=== PATIENT | female | born 1980 | race Caucasian/White ===

== ENCOUNTER 2024-06-30 18:55 | Emergency (ER) | payer MEDICAID ==
[~2024-06-30] VITALS: Ht 165.1 cm; Wt 106.4 kg
[2024-06-30 20:27] LABS: STREP A SCREEN POSITIVE (Neg)
[2024-06-30] MEDS ORDERED: AMOX-101 PO (21:15)
[2024-06-30] MEDS: amoxicillin 250mg capsule PO ONE (21:24)
[2024-06-30 21:32] VITALS: BP 109/59; PULSE 77; RESP 16; TEMP 98.5; O2SAT 100
== END 2024-06-30 21:33 | disposition home or self-care (01) ==
LOC: ER 18:56
DX: J02.9 Acute pharyngitis, unspecified (principal); R50.9 Fever, unspecified; R05.9 Cough, unspecified; Z20.822 Contact with and (suspected) exposure to COVID-19; Z98.890 Other specified postprocedural states
CPT/HCPCS: 36415; 87811; 87880; 93005; 99284

== ENCOUNTER 2024-11-08 01:46 | Emergency (ER) | payer MEDICAID ==
[~2024-11-08] VITALS: Ht 165.1 cm; Wt 109.1 kg
[2024-11-08] MEDS ORDERED: SERT-432 PO (02:55)
[2024-11-08] MEDS ORDERED: BUPR300T53 PO (02:55)
[2024-11-08] MEDS ORDERED: SUMA25TA35 PO ×2 (02:55→04:33)
[2024-11-08] MEDS ORDERED: BUPR100T13 PO (02:55)
[2024-11-08] MEDS ORDERED: BUSP10TA11 PO ×2 (02:55)
[2024-11-08 03:05] VITALS: TEMP 98
[2024-11-08] MEDS: SUMAtriptan succ. 6 MG/0.5ml vial SQ ONE (03:24)
[2024-11-08] MEDS: acetaminophen 325mg tablet PO ONE (03:25)
[2024-11-08 05:09] VITALS: BP 124/76; PULSE 90; RESP 16; O2SAT 96
== END 2024-11-08 05:14 | disposition home or self-care (01) ==
LOC: ER 01:48
DX: R51.9 Headache, unspecified (principal); R53.1 Weakness; Z98.890 Other specified postprocedural states
CPT/HCPCS: 70450; 96372; 99285; J3030

== ENCOUNTER 2025-03-21 22:12 | Emergency (ER) | payer MEDICAID ==
[~2025-03-21 22:12] MED LIST: BUPR100T13 PO; BUPR300T53 PO; BUSP10TA11 PO; SERT-432 PO; SUMA25TA35 PO
[2025-03-21 22:19] VITALS: TEMP 97.6
--- NOTE | 2025-03-21 23:58 | RADIOLOGY REPORT ---
Clinical History headache, HX OF SHUNT SINCE ' Comparison CT HEAD on 11/08/2024, 202 images. Technique: Noncontrast CT volume data aquisition of the head viewed in axial, coronal and sagittal pl anes. All CT scans at this medical facility are performed using dose modulation techniques as appropriate t o a performed exam including the following: Automated exposure control was utilized; adjustment of th e mA and/or kV according to patient size; and use of iterative reconstruction technique. All CT studies are reported to the Dose Index Registry of the [employer]. Without Contrast Radiation Dose: CTDI (mGy): 57.32; DLP (mGy-cm): 995.58 CARLOTA CARL, [id number] FINDINGS: Comparison CT dated 11/08/24. Ventriculostomy tube entering from right frontal approach is stable in appearance. Ventricles remain slit-like as on prior study. There is no evidence of mass or hemorrhage. There is no shift of midline structures. There is no evidence of acute ischemic infarct. MRI is more sensitive for this diagnosis. Posterior fossa structures reveal no acute pathology, basal cisterns patent, sella and parasellar reg ions are unremarkable. Orbits and orbital contents are unremarkable, paranasal sinuses and mastoid air cells clear, osseous structures reveal no acute pathology. IMPRESSION: 1. Ventriculostomy tube stable in appearance, ventricles remain slit-like as on prior study. Over s hunting may be present. 2. No other significant intracranial pathology identified on noncontrast CT. No significant change from prior study. This report was electronically signed by Troy Fair MD on 03/21/2025 11:54:38 PM.
--- NOTE | 2025-03-22 00:06 | Physician Documentation ---
History of Present Illness ~ Chief Complaint: Headache Stated Complaint: DIZZINESS Time Seen by MD: 00:04 Source: patient Mode of Arrival: Dropped Off HPI 44-year-old female, history of LPN RN shunt, and chronic headaches, presenting with a headache. She tells me that over the last year she has been having chronic headaches. She did have brain imaging and talk to her neurosurgery team, who felt that it was probably not related to her shunt, but she was scheduled for further outpatient workup and evaluation including a neuro ad operations specialist. She tells me that she was off school for 1 week and had been doing well, was not having headaches. She returned to school this week and her headaches returned as well. Today she had a worsening headache, but did not take her normal Imitrex which usually makes her headache better. The headache is generalized, with associated photophobia. She states it feels similar to her previous headaches, no new or different symptoms. No head trauma. Medication Reconciliation Allergies: Coded Allergies: akosua (Verified Adverse Reaction, Unknown, tightening in legs, 03/21/25) Scheduled Bupropion Hcl (Wellbutrin), 1 TAB PO Q12H, (Reported) Bupropion Hcl (Wellbutrin Xl), 300 MG PO DAILY, (Reported) Buspirone Hcl* (Buspar*), 1 TAB PO BID, (Reported) Buspirone Hcl* (Buspar*), 2 TAB PO HS, (Reported) Sertraline HCl (Sertraline HCl), 3 TAB PO DAILY, (Reported) Sumatriptan Succinate* (Imitrex Tab*), 1 TAB PO DAILY, (Reported) Past Medical History Past Surgical History: Other Past Surgical History: LPN RN shunt Alcohol Use: Rarely Drug Use: none Lives with: Family Lives In: Home Review of Systems Constitutional: Denies: fever Neurological: Reports: headache Physical Exam Vital Signs: Temperature: 97.6, Source: Temporal, Heart Rate: 72, Respiratory Rate: 16, BP: 118/81, Pulse Oximetry: 98 Oxygen Flow Rate: 0 Physical Exam General: This is a pleasant and overall nontoxic appearing young female HEENT: Atraumatic, oropharynx is moist, pupils appear equal Heart: Regular rate and rhythm, normal-appearing peripheral perfusion Lungs: normal work of breathing, normal oxygen saturation on room air Abdomen: Soft, nondistended, nontender all quadrants Extremities: Warm and well-perfused Neuro: Alert and oriented, normal strength and sensation in the extremities, no focal deficits Psychiatric: Calm and cooperative with exam Progress Results/Orders Results/Orders Orders - STEPHEN REMY MD Ct Head (03/21/25 22:45) Completed Orders - STEPHEN REMY MD Ct Head (03/21/25 22:45) Sumatriptan Succ. Inj. (Imitrex 6mg Inj. (03/22/25 00:15) Ketorolac Trometh 15mg/Ml Vial (Toradol (03/22/25 00:15) Ondansetron Disint. Tablet (Zofran Odt T (03/22/25 00:15) Medications Received in ER Medications (Trade) Dose Ordered Sig/Raisa Route PRN Reason Start Time Stop Time Status Last Admin Dose Admin (Imitrex 6mg inj.) 6 mg ONCE ONCE SQ 03/22/25 00:15 03/22/25 00:16 DC 03/22/25 00:22 6 MG (Toradol injection) 15 mg ONCE ONCE IM 03/22/25 00:15 03/22/25 00:16 DC 03/22/25 00:23 15 MG (Zofran ODT tablet) 4 mg ONCE ONCE PO 03/22/25 00:15 03/22/25 00:16 DC 03/22/25 00:22 4 MG Vital Signs 03/21/25 03/21/25 03/21/25 03/22/25 22:19 23:01 23:01 00:08 Temp 97.6 Pulse 87 72 91 Resp 15 16 16 B/P (MAP) 142/98 118/81 (93) 116/72 (87) Pulse Ox 99 98 100 O2 Flow Rate 0 0 03/22/25 03/22/25 00:23 00:48 Resp 16 16 Re-Evaluation Re-Evaluation : Progress Re-evaluation: The patient states that she was feeling somewhat better after the medication treatments. She feels comfortable going home. EKG/XRAY/CT/US/VASC/MRI CT : Impression I personally reviewed the CT scan, and this shows small ventricles, a LPN RN shunt in place. There is no evidence of shunt malfunction as in no significantly enlarged ventricles Medical Decision Making Differential Dx:Considerations: Include: ROGERS-Cluster, ROGERS-Migraine, ROGERS-Hypertensive, Pseudotumor cerebri Additional Comment LPN RN shunt malfunction or over drainage Assessment The patient presents with headache, similar to chronic headaches in the past. She does have a LPN RN shunt, and so a head CT was obtained. This does not show evidence of shunt malfunction, no enlarged ventricles. It is unchanged from her last CT scan. Overall, I suspect that this is a chronic tension or migraine type headache, given the timing related to returning to school after a week off school with no symptoms. She was given Imitrex and Toradol as well as Zofran. Following this she did feel better. Overall feel she was safe for discharge home with ongoing outpatient workup and management of her headaches. Departure Time of Disposition: : Disposition: HOME / SELF CARE / HOMELESS Impression: Primary Impression: Migraine Condition: Improved Discharge Instructions: Chronic Migraine Headache, [id number] Additional Instructions: The head CT does not show any changes to your brain including no sign of malfunction of your shunt. Please follow-up with your primary care doctor as soon as possible to discuss further long-term medications for your headaches. In the meantime, please continue to use your Imitrex and anti-inflammatories at home. Referrals: NO PRIMARY CARE PROVIDER (PCP) Education Educated: Patient Educated regarding: diagnosis, need for follow up Signature Scribe Signature: na Attestation: STEPHEN Sultana MD Mar 22, 2025 00:06
[2025-03-22 00:08] VITALS: BP 116/72; PULSE 91; O2SAT 100
[2025-03-22] MEDS: SUMAtriptan succ. 6 MG/0.5ml vial SQ ONE (00:22)
[2025-03-22] MEDS: ondansetron 4mg rapidly disintigrating tab PO ONE (00:22)
[2025-03-22] MEDS: ketorolac trometh 15mg/ml vial 15 MG/ML ML IM ONE (00:23)
[2025-03-22 00:48] VITALS: RESP 16
== END 2025-03-22 01:29 | disposition home or self-care (01) ==
LOC: ER 22:12
DX: G43.909 Migraine, unspecified, not intractable, without status migrainosus (principal); Z79.899 Other long term (current) drug therapy; Z91.018 Allergy to other foods; Z98.890 Other specified postprocedural states
CPT/HCPCS: 70450; 96372; 99285; J1885; J3030